=== PATIENT | female | born 1950 | race Caucasian/White ===

== ENCOUNTER 2020-02-28 12:20 | Outpatient (CLI) | payer MEDICARE, OTHER, SELFPAY ==
--- NOTE | 2020-02-28 12:25 | ECHO_ITS ---
Patient Info Name: Crystal Garcia Age: 69 years : 1950 Gender: Female Ht: 64 in Wt: 215 lbs BSA: 2.14 m2 HR: 68 bpm BP: 138 / 74 mmHg Heart Rhythm: Sinus Rhythm Technical Quality: Fair Exam Date: 02/28/2020 12:51 PM Exam Location: [facility] Patient Status: Outpatient Admit Date: 02/28/2020 Staff Ordering Physician: Bimal Hauser MD Bridge Construction Inspector: Rhonda Robles RDCS Attending Provider: Bimal Hauser MD Referring Physician: Murtaza GARCIA; Exam Type: CA echo doppler color flow Study Info Indications I35.0 - Nonrheumatic aortic (valve) stenosis Complete two-dimensional, color flow and Doppler transthoracic echocardiogram is performed. Strain analysis performed. History/Risk Factors Hypertension: Yes Dyslipidemia: Yes Congenital Heart Disease (CHD): No Peripheral Arterial Disease (PAD): No Myocardial Infarction (NC): No Chronic Lung Disease: No Obesity: Yes Renal Disease: No Coronary Artery Disease (CAD) No Congestive Heart Failure (CHF): No Cardiomyopathy/LV Systolic Dysfunction: No Diabetes Mellitus: No COPD: No Tobacco Use: Never Cerebrovascular Disease: No Family History: Diabetes Mellitus Deep Vein Thrombosis (DVT): None Dialysis: None Cardiac Arrest: No Summary 1. Complete two-dimensional, color flow and Doppler transthoracic echocardiogram is performed. 2. No parasternal short axis views. 3. Left ventricular chamber dimension is normal. 4. Left ventricular systolic function is normal, estimated at 60-65%. 5. There is mildly increased left ventricular wall thickness. 6. The left ventricular diastolic function is grade I diastolic dysfunction. 7. E/e' 9 is minimally elevated. 8. Global longitudinal strain is normal at -20.5%. 9. Left atrial chamber dimension is moderately enlarged. 10. The aortic valve is not well visualized. 11. There is moderate aortic valve sclerosis. 12. There is mild aortic valve stenosis with a peak velocity of 176 cm/s, mean gradient of 6 mmHg, and aortic valve area of 1.8 cm2. 13. There is mild aortic valve regurgitation. 14. The mitral valve has moderately calcified annulus. 15. There is mild tricuspid valve regurgitation. 16. No pulmonary hypertension, estimated pulmonary arterial systolic pressure is 35 mmHg. Left Ventricle No parasternal short axis views. E/e' 9 is minimally elevated. Global longitudinal strain is normal at -20.5%. Left ventricular chamber dimension is normal. Left ventricular systolic function is normal, estimated at 60-65%. There is mildly increased left ventricular wall thickness. The left ventricular diastolic function is grade I diastolic dysfunction. Right Ventricle Right ventricular chamber dimension is normal. Right ventricular systolic function is normal. Left Atria Left atrial chamber dimension is moderately enlarged. Right Atria Right atrial chamber dimension is normal. Aortic Valve Cannot determine number of aortic valve leaflets. The aortic valve is not well visualized. There is moderate aortic valve sclerosis. There is mild aortic valve stenosis with a peak velocity of 176 cm/s, mean gradient of 6 mmHg, and aortic valve area of 1.8 cm2. There is mild aortic valve regurgitation. Pulmonic Valve The pulmonic valve is not well visualized. Mitral Valve The mitral valve has moderately calcified annulus. There is no mitral valve stenosis. There is no mitral valve regurgitation.
== END 2020-02-28 12:21 | disposition home or self-care (01) ==
PROVIDERS: PCP Internal Medicine; Visit Provider Internal Medicine
DX: I35.0 Nonrheumatic aortic (valve) stenosis (principal)
CPT/HCPCS: 93306

== ENCOUNTER 2020-03-11 13:24 | Outpatient (CLI) | payer MEDICARE, OTHER, SELFPAY ==
--- NOTE | ~2020-03-11 | DEXA_ITS ---
Bone Density Report Name: Crystal Garcia Age: 69 Sex: Female Ethnicity: White Date of : 1950 Indication: postmenopausal; screening for osteoporosis; cancer; hysterectomy; Referring Provider: Bimal Hauser Study: Bone densitometry was performed. Exam Date: March 11, 2020 Accession number: [id number] Bone Density: Region BMD T-score Z-score Classification Femoral Neck (Left) 0.709 -1.3 0.6 Osteopenia Total Hip (Left) 0.840 -0.8 0.7 Normal World Health Organization criteria for BMD impression classify patients as: Normal (T-score at or above -1.0), Osteopenia (T-score between -1.0 and -2.5), or Osteoporosis (T-score at or below -2.5). 10-year Fracture Risk(1): Major Osteoporotic Fracture 8.6% Hip Fracture 1.0% Reported Risk Factors: [place] (), Neck BMD=0.709, BMI=37.2 (1) FRAX(R) Version 3.08. Fracture probability calculated for an untreated patient. Fracture probability may be lower if the patient has received treatment. Previous Exams: Region Exam Age BMD T-score BMD Change BMD Change Date g/cm2 vs Baseline vs Previous Total Hip(Left) 03/11/2020 69 0.840 -0.8 -0.062 (-6.8%) -0.012 (-1.4%) 09/24/2016 66 0.852 -0.7 -0.049 (-5.5%) -0.049 (-5.5%) 10/24/2006 56 0.901 -0.3 *Denotes significance at 95% confidence level, LSC for Total Hip = 0.027 g/cm2 # Denotes dissimilar scan types or analysis methods Clinical Information Provided by Patient: Has used the following medications: Vitamin D, Calcium Has the following medical conditions: Cancer, Hysterectomy No regular weight bearing exercise Onset of menses at age 12 Number of children 2 Impression: The patient has low bone mass, based on the Left Femoral Neck T-score. The patient has an estimated ten-year risk of hip fracture of 1% and an estimated ten-year risk of major fracture of 8.6%, based on the WHO FRAX algorithm. No significant bone loss was observed. Discussion: BONE DENSITY IS LOW AT ONE OR MORE SKELETAL SITES. This patient's lowest T-score is low at one or more skeletal sites. It meets the World Health Organization's (WHO) criteria for ?low bone mass? (T-score between -1.0 and -2.5). The patient's 10-year risk of fracture as calculated by FRAX is less than the threshold where pharmacological therapy is recommended by the National Osteoporosis Foundation (NOF). However, all treatment decisions require clinical judgment and consideration of individual patient factors, including patient preferences, comorbidities, previous drug use, risk factors not captured in the FRAX model (e.g.,
== END 2020-03-11 13:25 | disposition home or self-care (01) ==
LOC: CHSIMG 13:25
PROVIDERS: PCP Internal Medicine; Visit Provider Internal Medicine
DX: M81.0 Age-related osteoporosis without current pathological fracture (principal)
CPT/HCPCS: 77080

== ENCOUNTER 2020-04-01 13:01 | Outpatient (CLI) | payer MEDICARE, SELFPAY | END 2020-04-01 13:02 | disposition home or self-care (01) | LOC: CHSLAB 13:05 | PROVIDERS: PCP Internal Medicine; Visit Provider Specialist | DX: C43.72 Malignant melanoma of left lower limb, including hip (principal) | CPT/HCPCS: 88305; 88342 ==

== ENCOUNTER 2020-09-30 12:31 | Outpatient (CLI) | payer MEDICARE, SELFPAY | END 2020-09-30 12:32 | disposition home or self-care (01) | LOC: CHSOUTPT 12:43 | PROVIDERS: PCP Internal Medicine; Visit Provider Specialist | DX: D22.72 Melanocytic nevi of left lower limb, including hip (principal) | CPT/HCPCS: 88305 ==

== ENCOUNTER 2021-03-03 11:20 | Outpatient (CLI) | payer MEDICARE, SELFPAY ==
--- NOTE | 2021-03-03 11:30 | ECHO_ITS ---
Patient Info Name: Crystal Garcia Age: 70 years : 1950 Gender: Female Ht: 62 in Wt: 215 lbs BSA: 2.12 m2 HR: 55 bpm BP: 171 / 73 mmHg Exam Date: 03/03/2021 12:14 PM Exam Location: [facility] Patient Status: Outpatient Admit Date: 03/03/2021 Staff Ordering Physician: Bimal Hauser MD Rails Developer: Ni Giles Attending Provider: Bimal Hauser MD Referring Physician: Murtaza GARCIA; Exam Type: CA echo doppler color flow Study Info Indications I35.0 - Nonrheumatic aortic (valve) stenosis Complete two-dimensional, color flow and Doppler transthoracic echocardiogram is performed. Strain analysis performed. History/Risk Factors Hypertension: Yes Dyslipidemia: Yes Congenital Heart Disease (CHD): No Peripheral Arterial Disease (PAD): No Myocardial Infarction (CA): No Chronic Lung Disease: No Obesity: Yes Renal Disease: No Coronary Artery Disease (CAD) No Congestive Heart Failure (CHF): No Cardiomyopathy/LV Systolic Dysfunction: No Diabetes Mellitus: No COPD: No Tobacco Use: Never Cerebrovascular Disease: No Family History: Diabetes Mellitus Deep Vein Thrombosis (DVT): None Dialysis: None Cardiac Arrest: No Summary 1. Complete two-dimensional, color flow and Doppler transthoracic echocardiogram is performed. 2. Left ventricular chamber dimension is normal. 3. Left ventricular systolic function is normal, estimated at 60-65%. 4. The left ventricular diastolic function is grade I diastolic dysfunction. 5. E/e' 10 is mildly elevated. 6. Global longitudinal strain is abnormal at -14.9%. 7. Left atrial chamber dimension is mildly enlarged. 8. There is moderate aortic valve sclerosis. 9. There is mild to moderate aortic valve regurgitation. 10. The mitral valve has moderately calcified annulus. 11. There is mild to moderate mitral valve regurgitation. 12. There is trace tricuspid valve regurgitation. 13. No pulmonary hypertension, estimated pulmonary arterial systolic pressure is 39 mmHg. Left Ventricle E/e' 10 is mildly elevated. Global longitudinal strain is abnormal at -14.9%. Left ventricular chamber dimension is normal. Left ventricular systolic function is normal, estimated at 60-65%. The left ventricular diastolic function is grade I diastolic dysfunction. Right Ventricle Right ventricular systolic function is normal and with normal TAPSE 2.1 cm. Right ventricular chamber dimension is normal. Left Atria Left atrial chamber dimension is mildly enlarged. Right Atria Right atrial chamber dimension is normal. Aortic Valve The aortic valve is not well visualized. Cannot determine number of aortic valve leaflets. There is no aortic valve stenosis based on valve area and gradients. There is moderate aortic valve sclerosis. There is mild to moderate aortic valve regurgitation. Pulmonic Valve There is no pulmonic regurgitation. Mitral Valve The mitral valve has moderately calcified annulus. There is no mitral valve stenosis. There is mild to moderate mitral valve regurgitation. Tricuspid Valve There is trace tricuspid valve regurgitation. No pulmonary hypertension, estimated pulmonary arterial systolic pressure is 39 mmHg. Pericardium/Pleural There is no pericardial effusion. Inferior Vena Cava Normal inferior vena cava with >50% collapse upon inspiration consistent with normal right atrial pressure, 5 mmHg. Aorta The aortic root si
== END 2021-03-03 11:21 | disposition home or self-care (01) ==
LOC: CHSIMG 11:22
PROVIDERS: PCP Internal Medicine; Visit Provider Internal Medicine
DX: I35.0 Nonrheumatic aortic (valve) stenosis (principal)
CPT/HCPCS: 93306

== ENCOUNTER 2021-04-14 09:49 | Outpatient (CLI) | payer MEDICARE, SELFPAY | END 2021-04-14 09:50 | disposition home or self-care (01) | LOC: CHSLAB 09:52 | PROVIDERS: PCP Internal Medicine; Visit Provider Specialist | DX: L82.1 Other seborrheic keratosis (principal) | CPT/HCPCS: 88305 ==

== ENCOUNTER 2022-03-12 11:59 | Outpatient (CLI) | payer MEDICARE, SELFPAY ==
--- NOTE | ~2022-03-12 | DEXA_ITS ---
Bone Density Report Name: ABEL VALENCIA Age: 71 Sex: Female Ethnicity: White Date of : 1950 Indication: postmenopausal; screening for osteoporosis; height loss; prior fracture; cancer; hysterectomy; Referring Provider: Bimal Hauser Study: Bone densitometry was performed. Exam Date: March 12, 2022 Accession number: [id number] Bone Density: Region BMD T-score Z-score Classification AP Spine(L1, L2, L4) 0.989 -0.4 1.8 Normal Femoral Neck (Left) 0.750 -0.9 1.1 Normal Total Hip (Left) 0.870 -0.6 1.1 Normal Femoral Neck (Right) 0.973 1.1 3.1 Normal Total Hip (Right) 0.860 -0.7 1.0 Normal Femoral Neck Mean 0.862 0.1 2.1 Normal Total Hip Mean 0.865 -0.6 1.0 Normal World Health Organization criteria for BMD impression classify patients as: Normal (T-score at or above -1.0), Osteopenia (T-score between -1.0 and -2.5), or Osteoporosis (T-score at or below -2.5). 10-year Fracture Risk: FRAX not reported because: All T-scores for Spine Total, Hip Total, Femoral Neck at or above -1.0 Clinical Information Provided by Patient: Has had a low trauma fracture Has used the following medications: Vitamin D, Calcium, multivit Has the following medical conditions: Cancer, Hysterectomy Patient maximum height was 64 Menopause Age: 41 No regular weight bearing exercise Onset of menses at age 12 Number of children 2 Impression: The patient has normal bone mass. The patient has risk factors, including: previous fracture. Discussion: BONE DENSITY IS ABOVE THE MINIMUM DESIRABLE LEVEL AT ALL SKELETAL SITES TESTED. This patient?s bone mineral density is above the minimum desirable level (T-score -1.0 or better) at all sites measured. The patient should follow a healthful lifestyle (good nutrition with adequate calcium and vitamin D, and appropriate weight-bearing exercise). Follow-Up: Consider repeating this study in 5 years or sooner if there is some new clinical indication. Reported by: Dr. Justin Albert on 03/12/2022 1:46:00 PM. Reviewed, dictated and finalized at location [facility]
--- NOTE | 2022-03-12 01:00 | ECHO_ITS ---
Patient Info Name: Crystal Garcia Age: 71 years : 1950 Gender: Female Ht: 64 in Wt: 200 lbs BSA: 2.06 m2 HR: 55 bpm BP: 151 / 61 mmHg Heart Rhythm: Sinus Rhythm Technical Quality: Fair Exam Date: 03/12/2022 1:00 PM Exam Location: [facility] Patient Status: Outpatient Admit Date: 03/12/2022 Staff Ordering Physician: Bimal Hauser MD Grinding Operator: Shoshana Zepeda RDCS Attending Provider: Bimal Hauser MD Referring Physician: Murtaza GARCIA; Exam Type: CA echo doppler color flow Study Info Indications I35.0 - Nonrheumatic aortic (valve) stenosis Complete two-dimensional, color flow and Doppler transthoracic echocardiogram is performed. History/Risk Factors Hypertension: Yes Dyslipidemia: Yes Congenital Heart Disease (CHD): No Peripheral Arterial Disease (PAD): No Myocardial Infarction ([place]): No Chronic Lung Disease: No Obesity: Yes Renal Disease: No Coronary Artery Disease (CAD) No Congestive Heart Failure (CHF): No Cardiomyopathy/LV Systolic Dysfunction: No Diabetes Mellitus: No COPD: No Tobacco Use: Never Cerebrovascular Disease: No Family History: Diabetes Mellitus Deep Vein Thrombosis (DVT): None Dialysis: None Cardiac Arrest: No Summary 1. Complete two-dimensional, color flow and Doppler transthoracic echocardiogram is performed. 2. Left ventricular chamber dimension is normal. 3. Left ventricular systolic function is normal, estimated at 60-65%. 4. The left ventricular diastolic function is grade II diastolic dysfunction. 5. E/e' 11 is mildly elevated. 6. Left atrial chamber dimension is mildly enlarged. 7. There is moderate aortic valve sclerosis, primarily involving noncoronary cusp. 8. There is mild aortic valve stenosis with a peak velocity of 206 cm/s, mean gradient of 8 mmHg, and aortic valve area of 1.9 cm2. 9. There is mild aortic valve regurgitation. 10. The mitral valve has moderately calcified annulus. 11. There is trace mitral valve regurgitation. 12. There is trace tricuspid valve regurgitation. 13. No pulmonary hypertension, estimated pulmonary arterial systolic pressure is 34 mmHg. Left Ventricle E/e' 11 is mildly elevated. Left ventricular chamber dimension is normal. Left ventricular systolic function is normal, estimated at 60-65%. The left ventricular diastolic function is grade II diastolic dysfunction. Right Ventricle Right ventricular systolic function is normal and with normal TAPSE 2.3 cm. Right ventricular chamber dimension is normal. Left Atria Left atrial chamber dimension is mildly enlarged. Right Atria Right atrial chamber dimension is normal. Aortic Valve There is moderate aortic valve sclerosis, primarily involving noncoronary cusp. The aortic valve is trileaflet. There is mild aortic valve stenosis with a peak velocity of 206 cm/s, mean gradient of 8 mmHg, and aortic valve area of 1.9 cm2. There is mild aortic valve regurgitation. Pulmonic Valve There is no pulmonic regurgitation. Mitral Valve The mitral valve has moderately calcified annulus. There is no mitral valve stenosis. There is trace mitral valve regurgitation. Tricuspid Valve There is trace tricuspid valve regurgitation. No pulmonary hypertension, estimated pulmonary arterial systolic pressure is 34 mmHg. Pericardium/Pleural There is no pericardial effusion. Inferior Vena Cava Normal inferior vena cava with >50% collapse
== END 2022-03-12 12:00 | disposition home or self-care (01) ==
LOC: CHSIMG 12:00
PROVIDERS: PCP Internal Medicine; Visit Provider Internal Medicine
DX: I35.0 Nonrheumatic aortic (valve) stenosis (principal); M81.0 Age-related osteoporosis without current pathological fracture
CPT/HCPCS: 77080; 93306

== ENCOUNTER 2022-12-28 09:33 | Outpatient (CLI) | payer MEDICARE, SELFPAY | END 2022-12-28 09:34 | disposition home or self-care (01) | LOC: CHSLAB 09:39 | PROVIDERS: PCP Internal Medicine; Visit Provider Specialist | DX: C44.719 Basal cell carcinoma of skin of left lower limb, including hip (principal) | CPT/HCPCS: 88305 ==